=== PATIENT | female | born 1975 | race Caucasian/White ===

== ENCOUNTER 2017-03-23 13:38 | Day surgery (SDC) | payer OTHER ==
[2017-03-23] VITALS (7 sets, daily range): BP systolic 119–146; BP diastolic 61–77; PULSE 57–70; RESP 14–20; Ht 154.9 cm; Wt 90.8 kg
[~2017-03-23] VITALS: Ht 154.9 cm; Wt 90.8 kg
[2017-03-23] MEDS ORDERED: FENTAnyl 50 MCG/ML VIAL ONE (15:03)
[2017-03-23] MEDS ORDERED: MIDAZOLAM 1 MG/ML 2 ML INJ ONE (15:03)
[2017-03-23] MEDS ORDERED: LIDOCAINE 1% (STERILE-PAK) 30 ML INJ ONE (15:04)
[2017-03-23] MEDS ORDERED: BUPIVACAINE 0.5% (SDV) 30 ML INJ ONE (15:04)
--- NOTE | 2017-03-23 15:04 | HPN ---
Date/Time of Note Date/Time of Note DATE: 03/23/17 TIME: 15:03 Interval H&P Admission Note Pt. seen H&P reviewed: No system changes JARRELL PERRY Mar 23, 2017 15:04
[2017-03-23] MEDS ORDERED: ONDANSETRON 4 MG INJ IV PRN (15:30)
[2017-03-23] MEDS ORDERED: DIPHENHYDRAMINE 50 MG INJ IV PRN (15:30)
[2017-03-23] MEDS ORDERED: MEPERIDINE 25 MG INJ IV PRN (15:30)
[2017-03-23] MEDS ORDERED: FENTAnyl 50 MCG/ML VIAL IV PRN ×2 (15:30)
[2017-03-23] MEDS ORDERED: HYDROCODONE/APAP (5/325) TAB PO PRN (16:00)
--- NOTE | 2017-03-23 19:42 | OPR ---
DATE OF OPERATION: 03/23/2017 SURGEON: Ashish Arriaga MD ANESTHESIA: Local, MAC. PREOPERATIVE DIAGNOSIS: Left carpal tunnel syndrome. POSTOPERATIVE DIAGNOSIS: Left carpal tunnel syndrome. OPERATION PERFORMED: Left carpal tunnel release, open. OPERATIVE FINDINGS: Compression of the median nerve at the carpal tunnel. INDICATION FOR PROCEDURE: A 41-year-old female with longstanding left carpal tunnel symptoms. She failed conservative management and elected to proceed with surgical intervention understanding the risks and benefits. DESCRIPTION OF PROCEDURE: The patient was seen in the preoperative area and all further questions were answered. Again, she gave informed consent understanding the risks and benefits. She was taken to the operative suite and placed in the supine position. Sedation was administered as was Ancef 2 g IV. Tourniquet placed on left upper extremity and left upper extremity was prepped with ChloraPrep stick and draped in usual sterile fashion. A 7 cc volume of a 50/50 mixture of 0.5 percent Marcaine, 1 percent lidocaine, was injected at the surgical site. Esmarch bandage was used to exsanguinate the extremity and tourniquet inflated to 250 mmHg. A 2 cm incision at the base of the palm was utilized with sharp dissection carried down through skin and subcutaneous tissue. The palmar aponeurosis was identified. It was incised along its ulnar border. Retractors were deepened and the transverse carpal ligament was identified and was incised along its ulnar border. A retractor placed distally and the ligament was divided distally under direct visualization. Attention turned proximally and the antebrachial fascia was divided off the transverse carpal ligament and the ligament was divided along its ulnar border under direct visualization. The wound was copiously irrigated and skin closed with 4-0 nylon. Xeroform placed over the wound followed by sterile gauze, Webril, and Kobe bandage. Tourniquet deflated after 12 minutes and the patient was awakened from anesthesia. She was taken to the postoperative suite in stable condition and tolerated the procedure well without complication. SPECIMENS: None. ESTIMATED BLOOD LOSS: 5 cc. COUNTS: Sponge, instrument, and needle counts correct. TOURNIQUET TIME: 12 minutes. CONDITION ON DISCHARGE: Stable. Dictated By: Ashish Arriaga MD /simeon/cali /Document#: [id number]
== END 2017-03-23 17:15 | disposition home or self-care (01) ==
LOC: SDS 13:38
PROVIDERS: ATTEND Orthopaedic Surgery Hand Surgery
DX: G56.02 Carpal tunnel syndrome, left upper limb (principal); E66.9 Obesity, unspecified; Z68.37 Body mass index [BMI] 37.0-37.9, adult
CPT/HCPCS: 64721; J2175; J2250; J2405; J3010; Z7512; Z7610

== ENCOUNTER 2017-04-10 07:16 | Day surgery (SDC) | END 2017-04-10 16:15 | disposition home or self-care (01) | DX: D05.12 Intraductal carcinoma in situ of left breast (principal); I10 Essential (primary) hypertension | CPT/HCPCS: 19301; 80053; 84703; 85025; 85610; 85730; 88307; J0690; J1100; J1170; J1885; J2175; J2250; J2405; Z7512; Z7610 ==

== ENCOUNTER 2017-06-05 07:14 | Observation (INO) | payer OTHER ==
[~2017-06-05] VITALS: Ht 154.9 cm; Wt 93.0 kg
[2017-06-05] VITALS (20 sets, daily range): BP systolic 111–154; BP diastolic 52–82; PULSE 70–104; RESP 16–18; Ht 154.9 cm; Wt 93.0 kg
[~2017-06-05 07:14] MED LIST: AMLO2.5T78 PO; BENA40TA41 PO; CEFAZOLIN 2 GM/50 ML (PMX) 50 ML IVPB ONE; HYDR12.58 PO; METO-448 PO; PROPOFOL 200 MG INJ ONE; SOD CHLORIDE 0.9% 1,000 ML IV ONE
[2017-06-05 08:28] LABS: BASOPHILS % 0.7 % (0.0-2.0); EOSINOPHILS # 0.2 10^3/ul (0.0-0.5); EOSINOPHILS % 3.7 % (0.0-7.0); HEMATOCRIT 35.3 % (37.0-47.0); HEMOGLOBIN 11.2 g/dl (12.0-16.0); LYMPHOCYTES # 2.4 10^3/ul (0.8-2.9); LYMPHOCYTES % 40.3 % (15.0-51.0); MEAN CORPUSCULAR HEMOGLOBIN 25.5 pg (29.0-33.0); MEAN CORPUSCULAR HGB CONC 31.7 g/dl (32.0-37.0); MEAN CORPUSCULAR VOLUME 80.4 fl (82.0-101.0); MEAN PLATELET VOLUME 9.1 fl (7.4-10.4); MONOCYTE # 0.5 10^3/ul (0.3-0.9); MONOCYTES % 8.1 % (0.0-11.0); NEUTROPHIL # 2.8 10^3/ul (1.6-7.5); NEUTROPHILS % 46.9 % (39.0-77.0); PLATELET COUNT 337 10^3/UL (140-415); RED BLOOD COUNT 4.39 10^6/ul (4.20-5.40); RED CELL DISTRIBUTION WIDTH 14.5 % (11.5-14.5); WHITE BLOOD COUNT 5.9 10^3/ul (4.8-10.8)
[2017-06-05] MEDS ORDERED: ISOSULFAN BLUE 1% 5 ML INJ SC ONE (08:33)
[2017-06-05 08:49] LABS: INR 0.93; PROTIME 12.5 Sec (12.2-14.2)
[2017-06-05 08:51] LABS: ALBUMIN 4.1 g/dl (3.3-4.9); ALBUMIN/GLOBULIN RATIO 1.07; BILIRUBIN,INDIRECT 0.5 mg/dl (0-1.1); BILIRUBIN,TOTAL 0.5 mg/dl (0.2-1.3); TOTAL PROTEIN 7.9 g/dl (6.1-8.1)
[2017-06-05 08:56] LABS: CALCIUM 8.9 mg/dl (8.4-10.2); CREATININE 0.79 mg/dl (0.44-1.00)
[2017-06-05] MEDS ORDERED: PROPOFOL 20 ML ONE (09:00)
[2017-06-05] MEDS ORDERED: hydrALAzine 20 MG INJ IV PRN ×2 (09:00→12:00)
[2017-06-05] MEDS ORDERED: DIPHENHYDRAMINE 50 MG INJ IV PRN (09:00)
[2017-06-05] MEDS ORDERED: FENTAnyl 50 MCG/ML VIAL IV PRN ×3 (09:00)
[2017-06-05] MEDS ORDERED: HYDROmorphONE (0.2 MG/ML) 10ML SYG IV PRN ×2 (09:00)
[2017-06-05] MEDS ORDERED: ONDANSETRON 4 MG INJ IV PRN ×2 (09:00→10:30)
[2017-06-05] MEDS ORDERED: MEPERIDINE 25 MG INJ IV PRN (09:00)
[2017-06-05] MEDS ORDERED: FENTAnyl 50 MCG/ML VIAL ONE (09:00)
[2017-06-05] MEDS ORDERED: OXYCODONE/ACETAMINOPHEN (5/325) TAB PO PRN ×2 (09:00)
[2017-06-05] MEDS ORDERED: LABETALOL HCL 20MG INJ IV PRN (09:00)
[2017-06-05] MEDS ORDERED: PROCHLORPERAZINE 10 MG INJ IV PRN (09:00)
[2017-06-05] MEDS ORDERED: LIDOCAINE 2% (SDV) 5 ML INJ ONE (09:00)
[2017-06-05] MEDS ORDERED: MIDAZOLAM 1 MG/ML 2 ML INJ ONE (09:00)
[2017-06-05] MEDS ORDERED: CEFAZOLIN 1 GM INJ ONE (09:12)
[2017-06-05] MEDS ORDERED: ONDANSETRON 4 MG INJ ONE (09:19)
[2017-06-05] MEDS ORDERED: FAMOTIDINE 20 MG INJ ONE (09:19)
[2017-06-05] MEDS ORDERED: DEXAMETHASONE 4 MG/ML 1 ML INJ ONE (09:19)
[2017-06-05] MEDS ORDERED: METOCLOPRAMIDE 10 MG INJ ONE (09:19)
[2017-06-05] MEDS ORDERED: HYDROmorphONE 2 MG/ML SYG ONE (09:28)
[2017-06-05] MEDS ORDERED: EPHEDrine SULFATE 50 MG/5 ML SYG ONE (09:29)
--- NOTE | 2017-06-05 10:26 | SIPON ---
Date/Time of Note Date/Time of Note DATE: 06/05/17 TIME: 10:22 Operative Report Preoperative Diagnosis Left breast cancer need for reexcision partial mastectomy and sentinel lymph node biopsy Postoperative Diagnosis Same Operation/Procedure Performed Left reexcision partial mastectomy and axillary dissection utilizing sentinel lymph node technique Surgeon see signature line rehab care assistant Dr Kelley Anesthesia: general Estimated blood loss: 10 - 50 ml's Transfusion Required none Specimen Left breast specimen with sentinel lymph node and additional axillary lymph nodes Grafts/Implants none Complications none MOMO SANTOS MD Jun 05, 2017 10:26
[2017-06-05] MEDS ORDERED: morphine 2 MG INJ IV PRN (10:30)
[2017-06-05] MEDS ORDERED: ACETAMINOPHEN 1000MG/100ML IV 100 ML IVPB PRN (10:30)
[2017-06-05] MEDS: HYDROmorphONE (0.2 MG/ML) 10ML SYG IV PRN ×2 (10:51→11:16)
--- NOTE | 2017-06-05 11:38 | OPR ---
DATE OF OPERATION: 06/05/2017 PREOPERATIVE DIAGNOSIS: Early invasive cancer, left breast, need for reexcision partial mastectomy and sentinel lymph node biopsy. POSTOPERATIVE DIAGNOSIS: Early invasive cancer, left breast, need for reexcision partial mastectomy and sentinel lymph node biopsy. PROCEDURE: Left reexcision partial mastectomy and axillary dissection utilizing sentinel lymph node technique. ANESTHESIA: General. ANESTHESIOLOGIST: Dr. Faith. SURGEON: Yoseph Romero MD STRAWHAT BLOCKING OPERATOR: Dr. Matthew Kelley. INDICATIONS FOR PROCEDURE: The patient is a 41-year-old female who underwent screening mammography and was found to have suspicious microcalcifications in the left breast. Core biopsy revealed ducta l carcinoma in situ. Subsequent needle-directed partial mastectomy revealed early invasive cancer. The margins were inadequate for DCIS both inferiorly, medially and posteriorly. She was counseled as to the need for reexcision partial mastectomy and benefit of sentinel lymph node biopsy. She con sented and was scheduled for surgery. DESCRIPTION OF PROCEDURE: The patient was brought to the operating theater, placed under general an esthesia. The left breast and axillary region was prepped and draped in usual sterile fashion. Juaquin roximately 4 mL of 1% Lymphazurin blue dye were then injected peritumorally. The breast was gently massaged for approximately 12 minutes. At this point, a 3 cm to 4 cm incision was made in the left axillary hairline. Subcutaneous tissue was dissected with cautery down through the clavipectoral fa scia. A dye-stained lymphatic was traced to a sentinel node. Although this node was not enlarged, there were 2 large lymph nodes in the region. Dr. Romero made the decision to perform a level 1 diss ection with blunt dissection along the chest wall. The long thoracic nerve was kept out of harm's w ay and more superiorly, the axillary vein and thoracodorsal neurovascular bundle were identified and kept out of harm's way. The enlarged lymph nodes with the sentinel node were removed. Intraoperat gen cytology was performed by attending pathologist, Dr. Brock Connolly and was negative for defini te evidence of malignancy. Therefore, no further nodes were taken. The wound was irrigated. A #10 flat Alex-Lomeli drain was brought through the left mid axillary line, cut to size, laid within t he axilla. It was secured in place with 2-0 nylon suture in the standard fashion. The incision was then reapproximated with a 4-0 Vicryl suture in subcuticular fashion. Attention was then directed to performing the reexcision. The previous surgical incisional scar was reincised with 15 blade scalpel. Subcutaneous tissue was dissected with cavity down to the seroma cavity. The cavity was entered. Several milliliters of seroma fluid were then suction evacuated. Skin edges were elevated with skin hooks and 180 degree circumferential resection of the portion of the superior, the medial and the inferior margin, along with the posterior tissue were resected. Sp ecimen was removed, oriented and sent for permanent pathologic analysis. The wound was then irrigat ed. Minimal bleeding was controlled with cautery, and the skin was reapproximated with a 4-0 Vicryl suture in subcuticular fashion. Dermabond was then applied to both incisions. The patient tolerat ed procedure well. Estimated blood loss was 30 mL. There were no complications and the patient was transported in stable condition to the recovery room where circumferential compression dressing was applied. Dictated By: YOSEPH BURRELL/PARAMJIT Conf#: [id number] DID#: [id number]
[2017-06-05] MEDS: D5W-0.45 NACL + KCL 20 MEQ 1,000 ML IV SCH ×3 (12:46→23:00)
--- NOTE | 2017-06-05 12:55 | HP ---
DATE OF ADMISSION: 06/05/2017 HISTORY OF PRESENT ILLNESS: The patient is a 41-year-old female with history of hypertension. The patient underwent screening mammography and was found to have approximately a 2 cm area of business technology architect ural distortion with calcification, highly suspicious for malignancy. The patient underwent core bi opsy which revealed DCIS. Patient was reevaluated by Dr. Romero in surgical consultation and patient was brought to the hospital and underwent a left breast reexcision partial mastectomy and sentinel lymph node biopsy. Postoperatively, the patient experienced moderate pain and the patient will be a dmitted for further evaluation and management. PAST MEDICAL HISTORY: Positive for hypertension. PAST SURGICAL HISTORY: Status post laparoscopic cholecystectomy, status post breast biopsy in [place] of this year, and status post carpal tunnel surgery in the left wrist. FAMILY HISTORY: Negative for any breast or ovarian cancer. Positive for hypertension. SOCIAL HISTORY: Patient lives at home with her family. The patient denies any tobacco use, denies any alcohol use, denies any illicit drug use. ALLERGIES: NO KNOWN ALLERGIES. HOME MEDICATIONS: 1. Amlodipine. 2. Hydrochlorothiazide. 3. Lopressor. REVIEW OF SYSTEMS: A 12-point review of systems is negative unless what mentioned in the HPI. PHYSICAL ASSESSMENT: GENERAL: Well-developed, obese female and currently is awake, alert, in no acute distress. VITAL SIGNS: Temperature is 98.2, pulse is 91, respiratory rate 18, blood pressure is 144/73, oxyge n saturation 99% on 2 liters nasal cannula. HEENT: Head is atraumatic, normocephalic. Pupils equal, round, reactive to light and accommodation . Oral mucosa is pink and moist. NECK: Supple, no cervical lymphadenopathy, no thyromegaly. LUNGS: Clear bilaterally. There are no rhonchi, wheezes, rales noted. CARDIOVASCULAR: Normal S1, S2. No murmurs, gallops, clicks, rubs noted. BREASTS: The patient is status post left breast surgery with dry, clean, intact dressing. ABDOMEN: Protuberant, soft, nondistended, nontender. Bowel sounds present. There is no guarding, no rebound tenderness. EXTREMITIES: No edema, clubbing, cyanosis. Pulses equal bilaterally 2+. SKIN: There is no rash, petechiae noted. NEUROLOGICAL: The patient is awake, alert and oriented x3, no focal deficits noted. MUSCULOSKELETAL: Motor strength 5/5 in all extremities. LABORATORY DATA: On admission, CBC: White blood cells 5.9, hemoglobin 11.2, hematocrit 35.[address] atelets 337. Chemistry: Sodium is 140, potassium 4.0, chloride 108, carbon dioxide 24, anion gap 1 2, BUN is 15, creatinine 0.79, glucose 92, AST 27, ALT 31, alkaline phosphatase 92. PT is 12.5, INR is 0.93, aPTT 32.0. ASSESSMENT AND PLAN: 1. Left breast cancer, need for reexcision partial mastectomy and sentinel lymph node biopsy, statu s post left reexcision partial mastectomy and axillary dissection utilizing sentinel lymph node tech nique. Will continue morphine p.r.n. and Tylenol IV p.r.n. for pain, and Zofran p.r.n. for nausea. Continue IV fluids. 2. Hypertension. We will resume patient's home antihypertensive medication and patient was able to tolerate p.o. well. Meanwhile, we will give hydralazine p.r.n. for systolic blood pressure above 1 70 in intravenous form. Continue to monitor blood pressure. 3. Obesity. 4. We will continue sequential compression device for deep venous thrombosis prophylaxis. Further recommendations based on clinical course. Plan of care discussed with Dr. Reed. Dictated By: MICHELA DELVALLE SPORTS DIRECTOR for [facility] REED MD, SR/PARAMJIT Conf#: [id number] DID#: [id number]
[2017-06-06 02:26] VITALS: BP 113/58; RESP 18
[2017-06-06 07:18] LABS: BASOPHILS % 0.1 % (0.0-2.0); EOSINOPHILS % 0.3 % (0.0-7.0); HEMATOCRIT 32.3 % (37.0-47.0); LYMPHOCYTES # 2.4 10^3/ul (0.8-2.9); LYMPHOCYTES % 31.3 % (15.0-51.0); MEAN CORPUSCULAR HEMOGLOBIN 25.5 pg (29.0-33.0); MEAN CORPUSCULAR VOLUME 82.4 fl (82.0-101.0); MEAN PLATELET VOLUME 9.3 fl (7.4-10.4); MONOCYTE # 0.7 10^3/ul (0.3-0.9); MONOCYTES % 8.6 % (0.0-11.0); NEUTROPHIL # 4.5 10^3/ul (1.6-7.5); NEUTROPHILS % 59.3 % (39.0-77.0); PLATELET COUNT 329 10^3/UL (140-415); RED BLOOD COUNT 3.92 10^6/ul (4.20-5.40); RED CELL DISTRIBUTION WIDTH 14.8 % (11.5-14.5); WHITE BLOOD COUNT 7.6 10^3/ul (4.8-10.8)
[2017-06-06] MEDS: D5W-0.45 NACL + KCL 20 MEQ 1,000 ML IV SCH (07:37)
[2017-06-06 07:41] LABS: CALCIUM 8.7 mg/dl (8.4-10.2); CREATININE 0.79 mg/dl (0.44-1.00)
[2017-06-06 08:33] VITALS: BP 115/60; RESP 18
[2017-06-06 15:00] VITALS: BP 97/52; RESP 18
[2017-06-06] MEDS ORDERED: HYDR-906 PO (15:56)
--- NOTE | 2017-06-06 18:47 | PN ---
DATE: 06/06/2017 Postop day #1 status post left reexcision partial mastectomy and axillary dissection and sentinel ly mph node technique. SUBJECTIVE: No complaint. Has had pain in the middle of the night but does not have any more pain. Has been out of bed and walking around. OBJECTIVE: GENERAL: Alert, awake, oriented x3. VITAL SIGNS: Temperature 98.2, heart rate 75, respirations 18, blood pressure 113/58, saturation 98 % on room air. HEART: Regular. LUNGS: Clear. Dressings are intact. Wounds are clean. The STANLEY drainage catheters, which is in the axilla has drai dominga 10 mL since operation, serosanguineous in color. PLAN: Patient is going to be discharged home today. The patient was given the instruction on how t o take care of the Alex-Lomeli and how to drain it and how to measure it. Pain medication will be given by medical service. Patient will call Dr. Romero' office and make an appointment for followup . Dictated By: CELESTINO MOREIRA/PARAMJIT Conf#: [id number] DID#: [id number]
--- NOTE | 2017-06-18 16:37 | DS ---
Date/Time of Note Date/Time of Note DATE: 06/18/17 TIME: 16:34 Discharge Summary Admission/Discharge Info Admit Date/Time Jun 05, 2017 at 10:26 Discharge Date/Time Jun 06, 2017 at 17:35 Patient Condition: Stable Hx of Present Illness The patient is a 41-year-old female with history of hypertension. The patient underwent screening mammography and was found to have approximately a 2 cm area of architectural distortion with calcification, highly suspicious for malignancy. The patient underwent core biopsy which revealed DCIS. Patient was reevaluated by Dr. Romero in surgical consultation and patient was brought to the hospital and underwent a left breast reexcision partial mastectomy and sentinel lymph node biopsy. Postoperatively, the patient experienced moderate pain and the patient will be admitted for further evaluation and management. Hospital Course 1. Left breast cancer, need for reexcision partial mastectomy and sentinel lymph node biopsy, status post left reexcision partial mastectomy and axillary dissection utilizing sentinel lymph node technique. Will continue morphine p.r.n. and Tylenol IV p.r.n. for pain, and Zofran p.r.n. for nausea. Continue IV fluids. 2. Hypertension. We will resume patient's home antihypertensive medication when pt was able to tolerate p.o. well. hydralazine p.r.n. for systolic blood pressure above 170 in intravenous form. Continue to monitor blood pressure. 3. Obesity. Home Meds Active Scripts Hydrocodone/Acetaminophen ([place] 5-325 Tablet) 1 Each Tablet, 1 EACH PO Q4 for PAIN, #30 TAB Prov:MICHELA DELVALLE 06/06/17 Reported Medications Amlodipine Besylate* (Amlodipine Besylate*) 2.5 Mg Tablet, 5 MG PO DAILY, #30 TAB 04/10/17 Benazepril Hcl* (Benazepril Hcl*) 40 Mg Tablet, 40 MG PO DAILY, #30 TAB 04/10/17 Hydrochlorothiazide* (Hydrochlorothiazide*) 12.5 Mg Tablet, 12.5 MG PO DAILY, # 30 TAB 04/10/17 Metoprolol Tartrate* (Lopressor*) 25 Mg Tab, 25 MG PO DAILY, #60 TAB 04/10/17 Follow-up Plan f/up with Dr Romero in 1 week. Primary Care Provider Shannon Aguilera Time spent on discharge: > 30 minutes MICHELA DELVALLE Jun 18, 2017 16:37
== END 2017-06-06 17:35 | disposition home or self-care (01) ==
LOC: SDS 07:14 → MS1 10:26 → EDSTATUS 12:30
PROVIDERS: ADMIT Surgery Surgical Oncology; ATTEND Surgery Surgical Oncology
DX: C50.919 Malignant neoplasm of unspecified site of unspecified female breast (principal); D05.12 Intraductal carcinoma in situ of left breast; I10 Essential (primary) hypertension; E66.9 Obesity, unspecified; Z68.38 Body mass index [BMI] 38.0-38.9, adult
CPT/HCPCS: 19301; 38500; 38792; 80048; 80053; 84703; 85025; 85610; 85730; 88307; 88331; 88342; J0131; J0690; J1100; J1170; J2250; J2270; J2405; J2765; J3010; J3480; Z7500; Z7512; Z7610; G0378; Q9968